=== PATIENT | female | born 1980 | race Native Hawaiian/Other Pacific Islander ===

== ENCOUNTER 2021-04-18 06:00 | Day surgery (SDC) | payer OTHER ==
[2021-04-12 10:07] LABS: Hematocrit 37.5 % (30.3-42.9); Hemoglobin 12.2 gm/dl (10.1-14.3); Mean Corpuscular HGB Conc 33 % (30-34); Mean Corpuscular Volume 85 fl (79-97); Platelet Count 280 K/mm3 (140-440); Red Cell Distribution Width 13.4 % (13.2-15.2)
[2021-04-12 10:27] LABS: Blood Urea Nitrogen 17 mg/dL (7-17); Calcium 8.4 mg/dL (8.4-10.2); Hemolysis Index 9
[2021-04-12 10:36] LABS: BUN/Creatinine Ratio 24
--- NOTE | 2021-04-13 13:17 | Electrocardiograph Report ---
[facility] Test Date: 2021-04-12 Test Time: 09:44:54 Pat Name: FERNY ANGEL Department: Room: Gender: F Administrative Executive: LETICIA : 1980 Requested By: CINTIA SAWYER Order Number: [id number] Reading MD: Kenyatta Leroy Measurements Intervals [place] Rate: 60 P: 48 [place]: 122 QRS: 74 QRSD: 96 T: 43 QT: 432 QTc: 431 Interpretive Statements Sinus rhythm No previous ECG available for comparison Electronically Signed On 04-13-2021 13:17:02 EST by Kenyatta Leroy
[~2021-04-18 06:00] MED LIST: ceFAZolin/Water 2 GM/20 ML 2 GM/20 ML SYRINGE IV NR
[2021-04-18] MEDS ORDERED: LACTATED RINGERS 1,000 ML ONE ×2 (06:14→09:46)
[2021-04-18] MEDS ORDERED: LIDOCAINE (1%) 10 MG/1 ML VIAL 20 ML MDV ONE (07:26)
[2021-04-18] MEDS ORDERED: LIDOCAINE MPF (2%) 20 MG/1 ML VIAL 5 ML ONE (07:27)
[2021-04-18] MEDS ORDERED: BUPIVACAINE/PF (0.5%) 5 MG/1 ML 30 ML VIAL INFILTRATI ONE ×2 (07:27→09:04)
[2021-04-18] MEDS ORDERED: ROCURONIUM 50 MG/5 ML INJ IV ONE (07:27)
[2021-04-18] MEDS ORDERED: fentaNYL 100 MCG/2 ML INJ ONE (07:28)
[2021-04-18] MEDS ORDERED: propofoL 200 MG/20 ML VIAL IV ONE (07:28)
--- NOTE | 2021-04-18 07:41 | Anesthesia Day of Surgery ---
Anesthesia Day of Surgery - Day of Surgery Patient Examined: Yes Patient H&P Reviewed: Yes Patient is NPO: Yes
--- NOTE | 2021-04-18 07:43 | Anesthesia Consultation ---
Anesthesia Consult and Med Hx Date of service: 04/18/21 - Airway Anesthetic Teeth Evaluation: Good ROM Head & Neck: Adequate Mental/Hyoid Distance: Adequate Mallampati Class: Class II Intubation Access Assessment: Good - Pre-Operative Health Status ASA Pre-Surgery Classification: ASA2 Proposed Anesthetic Plan: General - Pulmonary Hx Smoking: No Hx Sleep Apnea: No (SNORES-LOW RISK ON [place] SCREEN) - Cardiovascular System Hx Hypertension: Yes Hx Heart Attack/AMI: No - Central Nervous System Hx Back Pain: Yes (??? FROM GB) Hx Psychiatric Problems: No - Gastrointestinal Hx Gastroesophageal Reflux Disease: Yes - Hematic Hx Anemia: Yes Hx Sickle Cell Disease: No - Other Systems Hx Alcohol Use: No Hx Substance Use: No Hx Cancer: No Hx Obesity: No
[2021-04-18] MEDS ORDERED: LACTATED RINGERS 1,000 ML IV SCH (08:00)
[2021-04-18] MEDS ORDERED: MAGNESIUM OXIDE 400 MG TAB PO SCH (08:00)
[2021-04-18] MEDS ORDERED: ACETAMINOPHEN 500 MG TAB PO SCH (08:00)
[2021-04-18] MEDS ORDERED: HYDROmorphone 1 MG/1 ML INJ IV PRN ×2 (08:00)
[2021-04-18] MEDS ORDERED: CELECOXIB 200 MG CAP PO NR (08:00)
[2021-04-18] MEDS ORDERED: ONDANSETRON 4 MG/2 ML INJ IV PRN (08:00)
[2021-04-18] MEDS ORDERED: ceFAZolin/Water 2 GM/20 ML 2 GM/20 ML SYRINGE IV NR (08:00)
[2021-04-18] MEDS ORDERED: ceFAZolin/STERILE WATER 2 GM/20 ML SYRINGE IV NR (08:00)
[2021-04-18] MEDS ORDERED: MIDAZOLAM 2 MG/2 ML INJ IV NR (08:00)
[2021-04-18] MEDS ORDERED: ONDANSETRON 4 MG/2 ML INJ ONE (08:19)
[2021-04-18] MEDS ORDERED: KETAMINE/STERILE WATER 50 MG/ML SYRINGE ONE (08:19)
[2021-04-18] MEDS ORDERED: dexAMETHasone 20 MG/5 ML VIAL ONE (08:19)
[2021-04-18] MEDS ORDERED: ePHEDrine SULFATE 50 MG/1 ML INJ ONE (08:19)
[2021-04-18] MEDS ORDERED: SODIUM CHLORIDE 0.9% IRR 1,500 ML BOTTLE IR ONE (09:05)
[2021-04-18] MEDS ORDERED: LIDOCAINE (1%) 10 MG/1 ML VIAL 20 ML MDV INFILTRATI ONE (09:06)
[2021-04-18] MEDS ORDERED: GLYCOPYRROLATE 0.4 MG/2 ML INJ ONE (09:46)
[2021-04-18] MEDS ORDERED: NEOSTIGMINE 10MG/10 ML INJ MDV ONE (09:46)
--- NOTE | 2021-04-18 10:00 | Short Stay Summary ---
Short Stay Documentation Date of service: 04/18/21 - History Principal diagnosis: symptomatic cholelithiasis H&P: obtained from office - Allergies and Medications Current Medications: Allergies No Known Allergies Allergy (Verified 03/27/21 17:46) Home Medications Medication Instructions Recorded Confirmed Last Taken Type atenoloL [Tenormin] 50 mg PO DAILY 03/27/21 04/18/21 04/18/21 History Active Medications Acetaminophen (Acetaminophen 500 Mg Tab) 1,000 mg PO PREOP ERICH Stop: 04/18/21 21:00 Last Admin: 04/18/21 07:53 Dose: 1,000 mg Cefazolin Sodium (Cefazolin/Sterile Water 2 Gm/20 Ml Syringe) 2 gm IV PREOP NR Stop: 04/18/21 23:00 Celecoxib (Celecoxib 200 Mg Cap) 400 mg PO PREOP NR Stop: 04/18/21 21:00 Last Admin: 04/18/21 07:53 Dose: 400 mg Hydromorphone HCl (Hydromorphone 1 Mg/1 Ml Inj) 0.5 mg IV Q10MIN PRN PRN Reason: Pain , Severe (7-10) Stop: 04/18/21 17:00 Hydromorphone HCl (Hydromorphone 1 Mg/1 Ml Inj) 0.25 mg IV Q10MIN PRN PRN Reason: Pain, Moderate (4-6) Stop: 04/18/21 17:00 Lactated Ringer's (Lactated Ringers) 1,000 mls @ 125 mls/hr IV DIRECT ERICH Last Admin: 04/18/21 06:30 Dose: 125 mls/hr Magnesium Oxide (Magnesium Oxide 400 Mg Tab) 400 mg PO PREOP ERICH Stop: 04/18/21 18:00 Last Admin: 04/18/21 07:53 Dose: 400 mg Methocarbamol (Methocarbamol 750 Mg Tab) 1,500 mg PO PREOP ERICH Stop: 04/18/21 18:00 Last Admin: 04/18/21 07:53 Dose: 1,500 mg Midazolam HCl (Midazolam 2 Mg/2 Ml Inj) 2 mg IV PREOP NR Stop: 04/18/21 23:59 Last Admin: 04/18/21 08:53 Dose: 2 mg Ondansetron HCl (Ondansetron 4 Mg/2 Ml Inj) 4 mg IV ONCE PRN PRN Reason: Nausea And Vomiting Stop: 04/18/21 18:00 - Brief post op/procedure progress note Date of procedure: 04/18/21 Pre-op diagnosis: symptomatic cholelithiasis Post-op diagnosis: same Procedure: robotic assisted cholecystectomy Anesthesia: GETA, local Findings: distended gallbladder with stones, adhesions to omentum and stomach Surgeon: CINTIA SAWYER (Assist: Gibson Ivy MD) Estimated blood loss: minimal (30cc) Pathology: list (gallbladder) Specimen disposition: to lab Condition: stable - Hospital course Hospital course: Pt observed in PACU and discharged to home in stable condition when criteria met - Disposition Condition at discharge: Good Disposition: 01 HOME / SELF CARE / HOMELESS Short Stay Discharge Plan Activity: other (no heavy lifting x 2wks) Diet: low fat Wound: open to air, per your surgeon's advice Additional Instructions: see printed instructions Follow up with: CECILIA GLASGOW MD [Primary Care Provider] - 7 Days CNITIA SAWYER DO [Staff Physician] - 14 Days Prescriptions: HYDROcodone/APAP 5-325 [[place] 5/325] 1 each PO Q6HR PRN #15 tablet PRN Reason: Pain , Severe (7-10)
--- NOTE | 2021-04-18 11:11 | Post Anesthesia Evaluation ---
- Post Anesthesia Evaluation Patient Participated: Yes Airway Patent: Yes Stable Respiratory Function: Yes Nausea/Vomiting: No Temp > 96.8F: Yes Pain Manageable: Yes Adequeate Hydration: Yes Anesthesia Complications: No Block Receding Appropriately: Not Applicable Patient on Ventilator: No
[2021-04-18 11:17] VITALS: BP 107/70
--- NOTE | 2021-04-18 14:58 | Operative Report ---
Operative Report Operative Report: Date of procedure: 04/18/21 Pre-op diagnosis: symptomatic cholelithiasis Post-op diagnosis: same Procedure: robotic assisted cholecystectomy Anesthesia: GETA, local Findings: distended gallbladder with stones, adhesions to omentum and stomach Surgeon: CINTIA SAWYER Assist: Gibson Ivy MD Estimated blood loss: minimal (30cc) Pathology: list (gallbladder) Specimen disposition: to lab Condition: stable Hospital course: Pt observed in PACU and discharged to home in stable condition when criteria met HPI an indication: 40-year-old female who was referred to the office for evaluation of gallstones and abdominal pain pertinent lab data and imaging were reviewed and patient was found to have symptomatic cholelithiasis and cholecystectomy was recommended. All risks, benefits, alternatives to surgery were discussed with the patient and questions answered. Consent was signed. Procedure in detail: The patient was identified in the preoperative area and taken back to the operating room, placed on the operating room table in supine position. After anesthesia was induced, the abdomen was prepped and draped in usual sterile fashion and timeout was performed. Local anesthetic was infiltrated into all of the skin incision sites. Using a 11 blade a stab incision was at the umbilicus through which a Veress needle was inserted. The position of the veress needle was confirmed with the saline drop test and the abdomen was then insufflated to 15 mmHg. An incision was then made just above and to the right of the umbilicus using an 11 blade. A 5mm Optiview trocar was placed through this incision. The abdomen was then inspected and there was no underlying injury to any of the abdominal contents and the Veress needle was withdrawn. An additional right upper quadrant, left upper quadrant, and left lateral abdominal 8 mm robotic trocars were placed under direct visualization. The patient was placed in reverse Trendelenburg and tilted to the left. The robot was then docked in the usual fashion. A monopolar scissor was placed in arm #1, a Caudier grasper in arm #2, and a prograsp in arm #3. The surgeon transferred to the console. The gallbladder was visualized and there were adhesions from the omentum and distal stomach to the gallbladder. The gallbladder was distended. The gallbladder fundus was grasped and retracted cephalad and above the liver. The adhesions were dissected carefully using a combination of blunt dissection and hook electrocautery. The cystic duct and artery were then carefully dissected and the critical view obtained. The cystic duct and artery were the only two structures seen entering the gallbladder. Two hemolock clips were then placed on the proximal aspect of the cystic duct and one clip distally, and 1 hemolock clip was placed on the cystic artery proximally. The cystic duct was transected in between the clips using EndoShears by the commissary assistant. The cystic artery was ligated distal to the clip using electrocautery. The gallbladder was dissected from the liver bed using hook electrocautery. The gallbladder was placed in the right upper quadrant and the liver bed and gallbladder fossa examined. Hemostasis was very carefully ensured. There was no active bleeding or bile leakage seen. The clips on the cystic duct and artery were intact. The robot was then undocked and the surgeon scrubbed back in. The remainder of the case was performed laparoscopically. The gallbladder was placed into a Endo Catch bag. The gallbladder fossa was then irrigated until the irrigant returned clear. The patient was then placed into neutral position. The gallbladder was removed via the 12 port. 12 mm port fascia was closed with interrupted 0 Vicryl sutures using the Parminder Kohler device. The remaining ports were removed under direct visualization. Skin incisions were closed with 4-0 Monocryl subcuticular stitches and skin glue. All skin incisions were once again infiltrated with local anesthetic. At the end case all sponge, instrument, sharp counts were correct 2. The patient was awoken from anesthesia, extubated, taken to PACU in stable condition.
== END 2021-04-18 11:45 | disposition home or self-care (01) ==
LOC: OR 06:00
PROVIDERS: ATTEND Surgery
DX: K80.10 Calculus of gallbladder with chronic cholecystitis without obstruction (principal); K66.0 Peritoneal adhesions (postprocedural) (postinfection); I10 Essential (primary) hypertension; K21.9 Gastro-esophageal reflux disease without esophagitis; D64.9 Anemia, unspecified; Z20.822 Contact with and (suspected) exposure to COVID-19; Z79.899 Other long term (current) drug therapy; Z98.890 Other specified postprocedural states
CPT/HCPCS: 36415; 47562; 80048; 84703; 85027; 88304; 93005; 93010; J0690; J1100; J1815; J2250; J2405; J2704; J2710; J3010; J3490; J7120; S2900; U0003

== ENCOUNTER 2021-04-20 17:05 | Emergency (ER) | payer OTHER ==
[2021-04-20] MEDS ORDERED: SODIUM CHLORIDE 0.9% 1000 ML IV SOLN IV ONE (17:16)
[2021-04-20 17:44] LABS: Basophils % (Auto) 0.2 % (0.0-1.8); Eosinophils % (Auto) 0.3 % (0.0-4.3); Hematocrit 32.6 % (30.3-42.9); Hemoglobin 11.4 gm/dl (10.1-14.3); Lymphocytes # (Auto) 0.6 K/mm3 (1.2-5.4); Lymphocytes % (Auto) 6.2 % (13.4-35.0); Mean Corpuscular HGB Conc 35 % (30-34); Mean Corpuscular Volume 84 fl (79-97); Monocytes # (Auto) 0.5 K/mm3 (0.0-0.8); Monocytes % (Auto) 4.9 % (0.0-7.3); Platelet Count 241 K/mm3 (140-440); Red Blood Count 3.88 M/mm3 (3.65-5.03)
--- NOTE | 2021-04-20 17:59 | Emergency Department Report ---
ED Dizziness HPI - General Chief Complaint: Dizziness Stated Complaint: DIZZINESS/HYPOTENSION Time Seen by Provider: 04/20/21 17:15 Source: EMS, old records reviewed Mode of arrival: Stretcher Limitations: Language Barrier - History of Present Illness Initial Comments: 41-year-old female with a past medical history of palpitations currently on atenolol presents to the hospital 2 days status post laparoscopic cholecystectomy for acute cholecystitis with complaints of lightheadedness and abdominal pain. Patient had a near syncopal episode while standing. Upon EMS arrival blood pressure was 70/52. Patient received almost 1 L of normal saline with improvement of blood pressure to 90/60 upon arrival. Patient complains of 10/10 right upper quadrant pain, constant, and worse with palpation. Last dose of hydrocodone was 5 AM. Last dose of atenolol was yesterday. Patient denies fever, nausea, vomiting, diarrhea, or dysuria. She is currently on her menstrual cycle As per medical record patient surgery Dr. Sawyer - Related Data Home Medications Medication Instructions Recorded Confirmed Last Taken atenoloL [Tenormin] 50 mg PO DAILY 03/27/21 04/18/21 04/18/21 Previous Rx's Medication Instructions Recorded Last Taken Type HYDROcodone/APAP 5-325 [[place] 1 each PO Q6HR PRN #15 tablet 04/18/21 Unknown Rx 5/325] Azithromycin [Zithromax TAB] 250 mg PO QDAY #4 tablet 04/20/21 Unknown Rx Promethazine [Phenergan] 25 mg PO Q6HR PRN #20 tab 04/20/21 Unknown Rx Simethicone 180 mg PO QID PRN #20 cap 04/20/21 Unknown Rx Allergies Allergy/AdvReac Type Severity Reaction Status Date / Time No Known Allergies Allergy Verified 03/27/21 17:46 ED Review of Systems ROS: Stated complaint: DIZZINESS/HYPOTENSION Other details as noted in HPI Comment: All other systems reviewed and negative ED Past Medical Hx - Past Medical History Previous Medical History?: Yes Hx Hypertension: Yes Hx Heart Attack/AMI: No Hx Congestive Heart Failure: No Hx Diabetes: No Hx GERD: Yes Hx Sickle Cell Disease: No Hx Tuberculosis: No Hx HIV: No - Surgical History Past Surgical History?: No - Social History Smoking Status: Never Smoker Substance Use Type: None - Medications Home Medications: Home Medications Medication Instructions Recorded Confirmed Last Taken Type atenoloL [Tenormin] 50 mg PO DAILY 03/27/21 04/18/21 04/18/21 History HYDROcodone/APAP 5-325 [[place] 1 each PO Q6HR PRN #15 tablet 04/18/21 Unknown Rx 5/325] Azithromycin [Zithromax TAB] 250 mg PO QDAY #4 tablet 04/20/21 Unknown Rx Promethazine [Phenergan] 25 mg PO Q6HR PRN #20 tab 04/20/21 Unknown Rx Simethicone 180 mg PO QID PRN #20 cap 04/20/21 Unknown Rx ED Physical Exam - General Limitations: Language Barrier - Other Other exam information: General: No acute distress Head: Atraumatic Eyes: normal appearance ENT: Moist mucous membranes Neck: Normal appearance, no midline tenderness Chest: Clear to auscultation bilaterally CV: Regular rate and rhythm Abdomen: Soft, normal bowel sounds, laparoscopic postop wounds noted without erythema or drainage, right upper quadrant tenderness Back: Normal inspection Extremity: Normal inspection, full range of motion Neuro: Alert O x 3, no facial asymmetry, speech clear, no gross motor sensory deficit Psych: Appropriate behavior Skin: No rash ED Course Vital Signs 04/20/21 04/20/21 04/20/21 17:09 17:31 17:53 Temperature 99.3 F Pulse Rate 78 68 Respiratory 16 16 Rate Blood Pressure 90/60 97/68 [Left] O2 Sat by Pulse 95 96 96 Oximetry 04/20/21 04/20/21 19:09 21:09 Temperature Pulse Rate 93 H 84 Respiratory 16 16 Rate Blood Pressure 111/67 119/72 [Left] O2 Sat by Pulse 99 98 Oximetry - Reevaluation(s) Reevaluation #1: 04/20/21 22:42 Patient feeling better with residual nausea. [place] provided - Consultations Consultation #1: 04/20/21 22: 45 Case was discussed with Dr. Mello general surgeon who recommends discharge and follow-up ED Medical Decision Making - Lab Data Result diagrams: 04/20/21 17:19 04/20/21 17:19 Lab Results 04/20/21 04/20/21 04/20/21 Range/Units 17:19 17:19 17:19 WBC 10.0 (4.5-11.0) K/mm3 RBC 3.88 (3.65-5.03) M/mm3 Hgb 11.4 (10.1-14.3) gm/dl Hct 32.6 (30.3-42.9) % MCV 84 (79-97) fl MCH 30 (28-32) pg MCHC 35 H (30-34) % RDW 13.0 L (13.2-15.2) % Plt Count 241 (140-440) K/mm3 Lymph % (Auto) 6.2 L (13.4-35.0) % [place] % (Auto) 4.9 (0.0-7.3) % Eos % (Auto) 0.3 (0.0-4.3) % Baso % (Auto) 0.2 (0.0-1.8) % Lymph # (Auto) 0.6 L (1.2-5.4) K/mm3 [place] # (Auto) 0.5 (0.0-0.8) K/mm3 Eos # (Auto) 0.0 (0.0-0.4) K/mm3 Baso # (Auto) 0.0 (0.0-0.1) K/mm3 Seg Neutrophils % 88.4 H (40.0-70.0) % Seg Neutrophils # 8.9 H (1.8-7.7) K/mm3 APTT 24.3 (24.2-36.6) Sec. Sodium 139 (137-145) mmol/L Potassium 4.0 (3.6-5.0) mmol/L Chloride 104.2 (98-107) mmol/L Carbon Dioxide 24 (22-30) mmol/L Anion Gap 15 mmol/L BUN 10 (7-17) mg/dL Creatinine 0.6 (0.6-1.2) mg/dL Estimated GFR > 60 ml/min BUN/Creatinine Ratio 17 % Glucose 114 H (65-100) mg/dL Lactic Acid (0.7-2.0) mmol/L Calcium 8.1 L (8.4-10.2) mg/dL Total Bilirubin 0.20 (0.1-1.2) mg/dL AST 27 (5-40) units/L ALT 29 (7-56) units/L Alkaline Phosphatase 69 (35-129) units/L Troponin T (0.00-0.029) ng/mL Total Protein 6.6 (6.3-8.2) g/dL Albumin 3.8 L (3.9-5) g/dL Albumin/Globulin Ratio 1.4 % HCG, Qual (Negative) Urine Color (Yellow) Urine Turbidity (Clear) Urine pH (5.0-7.0) Ur Specific [place] (1.003-1.030) Urine Protein (Negative) mg/dL Urine Glucose (UA) (Negative) mg/dL Urine Ketones (Negative) mg/dL Urine Blood (Negative) Urine Nitrite (Negative) Urine Bilirubin (Negative) Urine Urobilinogen (<2.0) mg/dL Ur Leukocyte Esterase (Negative) Urine WBC (Auto) (0.0-6.0) /HPF Urine RBC (Auto) (0.0-6.0) /HPF U Epithel Cells (Auto) (0-13.0) /HPF Blood Type Antibody Screen 04/20/21 04/20/21 04/20/21 Range/Units 17:19 17:19 17:19 WBC (4.5-11.0) K/mm3 RBC (3.65-5.03) M/mm3 Hgb (10.1-14.3) gm/dl Hct (30.3-42.9) % MCV (79-97) fl MCH (28-32) pg MCHC (30-34) % RDW (13.2-15.2) % Plt Count (140-440) K/mm3 Lymph % (Auto) (13.4-35.0) % [place] % (Auto) (0.0-7.3) % Eos % (Auto) (0.0-4.3) % Baso % (Auto) (0.0-1.8) % Lymph # (Auto) (1.2-5.4) K/mm3 [place] # (Auto) (0.0-0.8) K/mm3 Eos # (Auto) (0.0-0.4) K/mm3 Baso # (Auto) (0.0-0.1) K/mm3 Seg Neutrophils % (40.0-70.0) % Seg Neutrophils # (1.8-7.7) K/mm3 APTT (24.2-36.6) Sec. Sodium (137-145) mmol/L Potassium (3.6-5.0) mmol/L Chloride (98-107) mmol/L Carbon Dioxide (22-30) mmol/L Anion Gap mmol/L BUN (7-17) mg/dL Creatinine (0.6-1.2) mg/dL Estimated GFR ml/min BUN/Creatinine Ratio % Glucose (65-100) mg/dL Lactic Acid 1.00 (0.7-2.0) mmol/L Calcium (8.4-10.2) mg/dL Total Bilirubin (0.1-1.2) mg/dL AST (5-40) units/L ALT (7-56) units/L Alkaline Phosphatase (35-129) units/L Troponin T < 0.010 (0.00-0.029) ng/mL Total Protein (6.3-8.2) g/dL Albumin (3.9-5) g/dL Albumin/Globulin Ratio % HCG, Qual Negative (Negative) Urine Color (Yellow) Urine Turbidity (Clear) Urine pH (5.0-7.0) Ur Specific [place] (1.003-1.030) Urine Protein (Negative) mg/dL Urine Glucose (UA) (Negative) mg/dL Urine Ketones (Negative) mg/dL Urine Blood (Negative) Urine Nitrite (Negative) Urine Bilirubin (Negative) Urine Urobilinogen (<2.0) mg/dL Ur Leukocyte Esterase (Negative) Urine WBC (Auto) (0.0-6.0) /HPF Urine RBC (Auto) (0.0-6.0) /HPF U Epithel Cells (Auto) (0-13.0) /HPF Blood Type Antibody Screen 04/20/21 04/20/21 04/20/21 Range/Units 17:30 20:05 Unknown WBC (4.5-11.0) K/mm3 RBC (3.65-5.03) M/mm3 Hgb (10.1-14.3) gm/dl Hct (30.3-42.9) % MCV (79-97) fl MCH (28-32) pg MCHC (30-34) % RDW (13.2-15.2) % Plt Count (140-440) K/mm3 Lymph % (Auto) (13.4-35.0) % [place] % (Auto) (0.0-7.3) % Eos % (Auto) (0.0-4.3) % Baso % (Auto) (0.0-1.8) % Lymph # (Auto) (1.2-5.4) K/mm3 [place] # (Auto) (0.0-0.8) K/mm3 Eos # (Auto) (0.0-0.4) K/mm3 Baso # (Auto) (0.0-0.1) K/mm3 Seg Neutrophils % (40.0-70.0) % Seg Neutrophils # (1.8-7.7) K/mm3 APTT (24.2-36.6) Sec. Sodium (137-145) mmol/L Potassium (3.6-5.0) mmol/L Chloride (98-107) mmol/L Carbon Dioxide (22-30) mmol/L Anion Gap mmol/L BUN (7-17) mg/dL Creatinine (0.6-1.2) mg/dL Estimated GFR ml/min BUN/Creatinine Ratio % Glucose (65-100) mg/dL Lactic Acid 1.20 (0.7-2.0) mmol/L Calcium (8.4-10.2) mg/dL Total Bilirubin (0.1-1.2) mg/dL AST (5-40) units/L ALT (7-56) units/L Alkaline Phosphatase (35-129) units/L Troponin T (0.00-0.029) ng/mL Total Protein (6.3-8.2) g/dL Albumin (3.9-5) g/dL Albumin/Globulin Ratio % HCG, Qual (Negative) Urine Color Colorless (Yellow) Urine Turbidity Clear (Clear) Urine pH 7.0 (5.0-7.0) Ur Specific [place] 1.005 (1.003-1.030) Urine Protein <15 mg/dl (Negative) mg/dL Urine Glucose (UA) Neg (Negative) mg/dL Urine Ketones Neg (Negative) mg/dL Urine Blood Mod (Negative) Urine Nitrite Neg (Negative) Urine Bilirubin Neg (Negative) Urine Urobilinogen < 2.0 (<2.0) mg/dL Ur Leukocyte Esterase Neg (Negative) Urine WBC (Auto) 1.0 (0.0-6.0) /HPF Urine RBC (Auto) 2.0 (0.0-6.0) /HPF U Epithel Cells (Auto) 1.0 (0-13.0) /HPF Blood Type A POSITIVE Antibody Screen Negative - EKG Data -: EKG Interpreted by [place] EKG shows normal: sinus rhythm, intervals (qtc 461), QRS complexes (qrsd 89), ST-T waves (no stemi) Rate: normal (65) - Radiology Data Radiology results: report reviewed CHEST 1 VIEW 04/20/2021 6:08 PM INDICATION / CLINICAL INFORMATION: hypotension. COMPARISON: None available. FINDINGS: SUPPORT DEVICES: None. HEART / MEDIASTINUM: No significant abnormality. LUNGS / PLEURA: Mild basilar bibasilar opacity No pneumothorax. ADDITIONAL FINDINGS: No significant additional findings. IMPRESSION: Suspect a combination of bibasilar atelectasis and pneumonia. CT ABDOMEN AND PELVIS WITH CONTRAST INDICATION / CLINICAL INFORMATION: ruq pain s/p cholecystectomy and hypotension. TECHNIQUE: Axial CT images were obtained through the abdomen and pelvis after 100 cc Omnipaque [address] scans at this location are performed using CT dose reduction for ALARA by means of automated exposure control. COMPARISON: None available. FINDINGS: LOWER CHEST: Subsegmental atelectasis of the lower lobes is demonstrated. LIVER: No significant abnormality. Small collections of free air noted anterior to the liver. GALLBLADDER: Findings suggesting recent cholecystectomy minimal stranding of fat within the gallbladder fossa. No drainable fluid collections. BILE DUCTS: No significant abnormality. SPLEEN: No significant abnormality. PANCREAS: No significant abnormality. ADRENALS: No significant abnormality. RIGHT KIDNEY / URETER: No significant abnormality. LEFT KIDNEY / URETER: No significant abnormality. STOMACH / DUODENUM / SMALL BOWEL: No significant abnormality. COLON: No significant abnormality. APPENDIX: No significant abnormality. PERITONEUM: Small collections of free air along the anterior peritoneal cavity and along the musculature of the left lateral chest wall and abdomen. LYMPH NODES: No significant adenopathy. AORTA / ARTERIES: No significant abnormality. IVC / VEINS: No significant abnormality. URINARY BLADDER: No significant abnormality. REPRODUCTIVE ORGANS: No significant abnormality. ADDITIONAL ABDOMINAL/PELVIC FINDINGS: None. SKELETAL SYSTEM: No significant abnormality. IMPRESSION: 1. Collections of free intraperitoneal air and air within the left lateral abdominal wall and chest wall musculature are compatible with sequelae of recent cholecystectomy. 2. Expected postoperative appearance of the gallbladder fossa. No drainable fluid collections or obvious acute complication. 3. No specific imaging findings to suggest etiology of the provided symptoms. 4. Moderate subsegmental atelectasis of the bilateral lower lobes. - Medical Decision Making 40-year-old female presents to the hospital with postoperative hypotension with affiliated near syncope. Symptoms improved with IV fluid bolus. No signs of sepsis or septic shock as per laboratory evaluation. CT does not show any acute inflammatory infectious cause. Patient has x-ray/CT findings of atelectasis versus infiltrate. Patient does not endorse infectious respiratory symptoms. Was treated empirically with Rocephin azithromycin. Azithromycin will be continued. Outpatient follow-up advised. Zofran will be prescribed nausea as needed. Pt feeling better and tolerating po intake prior to d/c. requesting medicine for gas Critical Care Time: No Critical care attestation.: If time is entered above; I have spent that time in minutes in the direct care of this critically ill patient, excluding procedure time. ED Disposition Clinical Impression: Hypotension, Near syncope, S/P cholecystectomy, Atelectasis of both lungs Disposition: HOME / SELF CARE / HOMELESS Is pt being admited?: No Does the pt Need Aspirin: No Condition: Stable Instructions: Atelectasis, Adult, Laparoscopic Cholecystectomy, Care After, Hypotension Additional Instructions: Take the medication as prescribed. Follow-up with Dr Sawyer as scheduled. Return if symptoms worsen as indicated by your discharge instructions. [place] el medicamento segn lo prescrito. Seguimiento con el Dr. Sawyer segn lo programado. Regrese si los sntomas empeoran segn lo indicado en las instrucciones de [place]. Prescriptions: Promethazine [Phenergan] 25 mg PO Q6HR PRN #20 tab PRN Reason: Nausea Simethicone 180 mg PO QID PRN #20 cap PRN Reason: Gas Pain Azithromycin [Zithromax TAB] 250 mg PO QDAY #4 tablet Referrals: KRISTIN WHYTE MD [Primary Care Provider] - 3-5 Days CINTIA SAWYER DO [Staff Physician] - 3-5 Days Time of Disposition: 23:56
[2021-04-20 18:02] LABS: Alanine Aminotransferase 29 units/L (7-56); Albumin 3.8 g/dL (3.9-5); Blood Urea Nitrogen 10 mg/dL (7-17); Calcium 8.1 mg/dL (8.4-10.2); Hemolysis Index 0
[2021-04-20 18:12] LABS: BUN/Creatinine Ratio 17
--- NOTE | 2021-04-20 18:29 | XRay Report ---
CHEST 1 VIEW 04/20/2021 6:08 PM INDICATION / CLINICAL INFORMATION: hypotension. COMPARISON: None available. FINDINGS: SUPPORT DEVICES: None. HEART / MEDIASTINUM: No significant abnormality. LUNGS / PLEURA: Mild basilar bibasilar opacity No pneumothorax. ADDITIONAL FINDINGS: No significant additional findings. IMPRESSION: Suspect a combination of bibasilar atelectasis and pneumonia. Signer Name: Kang Mclaughlin MD Signed: 04/20/2021 6:24 PM Workstation Name: [id number]
[2021-04-20 19:07] LABS: Bilirubin,Urine NEG (Negative); Blood,Urine MOD (Negative); Color,Urine Colorless (Yellow); Protein,Urine <15 mg/dL mg/dL (Negative); Urobilinogen,Urine < 2.0 mg/dL (<2.0)
[2021-04-20] MEDS ORDERED: cefTRIAXone/NS 2 GM/100 ML 2 GM/100 ML BAG IV ONE (19:09)
[2021-04-20] MEDS ORDERED: AZITHROMYCIN/NS 500 MG/250 ML 500 MG/250 ML BAG IV ONE (19:09)
--- NOTE | 2021-04-20 20:25 | Cat Scan Report ---
CT ABDOMEN AND PELVIS WITH CONTRAST INDICATION / CLINICAL INFORMATION: ruq pain s/p cholecystectomy and hypotension. TECHNIQUE: Axial CT images were obtained through the abdomen and pelvis after 100 cc Omnipaque [address] scans at this location are performed using CT dose reduction for ALARA by means of automated exposure control. COMPARISON: None available. FINDINGS: LOWER CHEST: Subsegmental atelectasis of the lower lobes is demonstrated. LIVER: No significant abnormality. Small collections of free air noted anterior to the liver. GALLBLADDER: Findings suggesting recent cholecystectomy minimal stranding of fat within the gallbladd er fossa. No drainable fluid collections. BILE DUCTS: No significant abnormality. SPLEEN: No significant abnormality. PANCREAS: No significant abnormality. ADRENALS: No significant abnormality. RIGHT KIDNEY / URETER: No significant abnormality. LEFT KIDNEY / URETER: No significant abnormality. STOMACH / DUODENUM / SMALL BOWEL: No significant abnormality. COLON: No significant abnormality. APPENDIX: No significant abnormality. PERITONEUM: Small collections of free air along the anterior peritoneal cavity and along the musculat ure of the left lateral chest wall and abdomen. LYMPH NODES: No significant adenopathy. AORTA / ARTERIES: No significant abnormality. IVC / VEINS: No significant abnormality. URINARY BLADDER: No significant abnormality. REPRODUCTIVE ORGANS: No significant abnormality. ADDITIONAL ABDOMINAL/PELVIC FINDINGS: None. SKELETAL SYSTEM: No significant abnormality. IMPRESSION: 1. Collections of free intraperitoneal air and air within the left lateral abdominal wall and chest w all musculature are compatible with sequelae of recent cholecystectomy. 2. Expected postoperative appearance of the gallbladder fossa. No drainable fluid collections or obvi ous acute complication. 3. No specific imaging findings to suggest etiology of the provided symptoms. 4. Moderate subsegmental atelectasis of the bilateral lower lobes. Signer Name: Kristopher Melo II, MD Signed: 04/20/2021 8:20 PM Workstation Name: [id number]
[2021-04-20] MEDS ORDERED: ONDANSETRON 4 MG/2 ML INJ IV ONE (22:19)
[2021-04-21 00:15] VITALS: BP 104/60
--- NOTE | 2021-04-21 10:02 | Electrocardiograph Report ---
[facility] Test Date: 2021-04-20 Test Time: 17:23:15 Pat Name: FERNY BUTLER Department: Room: Gender: F [employer]: EDY : 1980 Requested By: STEPHANIE BAKER Order Number: [id number] Reading MD: Manny Spence Measurements Intervals [place] Rate: 85 P: 40 MT: 132 QRS: 60 QRSD: 89 T: 2 QT: 388 QTc: 461 Interpretive Statements Sinus rhythm Compared to ECG 04/12/2021 09:44:54 No significant changes Electronically Signed On 04-21-2021 10:02:22 EST by Manny Spence
== END 2021-04-21 00:22 | disposition home or self-care (01) ==
LOC: ED 17:05
DX: I95.9 Hypotension, unspecified (principal); R55 Syncope and collapse; Z90.49 Acquired absence of other specified parts of digestive tract; J98.11 Atelectasis
CPT/HCPCS: 36415; 71045; 74177; 80053; 81001; 82140; 84484; 84703; 85025; 85730; 86850; 86900; 86901; 87040; 93005; 93010; 96365; 96367; 96375; 99285; J0456; J0696; J2405; J7030; Q9967; Q0162